=== PATIENT | male | born 1960 | race Caucasian/White ===

== ENCOUNTER 2018-09-19 14:24 | Inpatient (IN) ==
--- NOTE | 2018-09-19 15:06 | ED ---
HPI General Chief Complaint: Extremity Injury, Lower Stated Complaint: foot injury Time Seen by Provider: 09/19/18 14:43 Source: patient and RN notes reviewed Limitations: no limitations History of Present Illness HPI Narrative: 57 year old male presents to the emergency department for evaluation of left foot injury. Patient states that on Friday, 5 days ago, he was working in [place] on a roof and fell, landing on his right foot. He went to a local ER there and states he was diagnosed with "multiple foot fractures". Patient states they had no surgical capability and he was instructed to follow up. Patient states pain has been increasing and he is also concerned of increasing swelling. Patient denies any other injury. No head injury or LOC. No neck or back pain. Current pain is 8/10. Moderate severity. MD complaint: Reports foot injury Onset (ago): day(s) (5) Injury: Left: foot Type of Injury: Reports blunt Place: Reports work Severity: moderate Severity scale (1-10): 8 Relieving factors: nothing Exacerbating factors: nothing Context: Reports fall Associated symptoms: Reports unable to bear weight Other symptoms: Denies loss of consciousness, chest pain, diaphoresis, SOB, nausea/vomiting, seizure, syncope and confusion Treatments prior to arrival: Reports splint Related Data Home Medications Medication Instructions Recorded Confirmed No Known Home Medications 09/19/18 09/19/18 Allergies Allergy/AdvReac Type Severity Reaction Status Date / Time No Known Allergies Allergy Verified 09/19/18 14:28 Review of Systems ROS: all other systems reviewed are negative PMFSH Medical History Medical History Patient denies medical problems (Acute) Surgical History Surgical History H/O bone graft (Acute) History of arthroscopic knee surgery (Acute) Social History Social History Substance History: Active Abuse Smoking Status: Current every day smoker Tobacco Type: Cigarettes How Often Do You Have a Drink Containing Alcohol: Never Recent Travel in [place] within the Last 8 Weeks: No Recent Out of Country Travel within the Last 8 Weeks: No Exam Narrative Exam Narrative: GENERAL: Well-nourished, well-developed male patient, ambulatory. Afebrile. SKIN: Focused skin assessment warm/dry. Patient has ecchymosis to right medial ankle and calf with blister formation to the right medial ankle. Tissues are soft HEAD: Normocephalic. Atraumatic. EYES: No scleral icterus. No injection or drainage. NECK: Supple, trachea midline. No JVD or lymphadenopathy. CARDIOVASCULAR: Regular rate and rhythm without murmurs, gallops, or rubs. Right pedal pulse is 2+ RESPIRATORY: Breath sounds equal bilaterally. No accessory muscle use. Lung sounds are clear to auscultation. GASTROINTESTINAL: Abdomen soft, non-tender, nondistended. MUSCULOSKELETAL: No cyanosis, or edema. Patient has full sensation to the distal right lower extremity. He can wiggle toes without difficulty. BACK: Nontender without obvious deformity. No CVA tenderness. Course Initial Documented Vital Signs Temperature 97.8 F 09/19/18 14:25 Pulse Rate 94 H 09/19/18 14:25 Respiratory Rate 20 09/19/18 14:25 Blood Pressure 159/96 H 09/19/18 14:25 Pulse Oximetry 98 09/19/18 14:25 Last Documented Vital Signs Temperature 97.7 F 09/20/18 03:23 Pulse Rate 72 09/20/18 03:23 Respiratory Rate 18 09/20/18 03:23 Blood Pressure 139/89 09/20/18 03:23 Pulse Oximetry 98 09/20/18 03:23 Medical Decision Making KATIANA Attestation KATIANA supervised visit: Yes Attestation: I, Dr. Godinez, have reviewed the advance practice practitioner's documentation and am in agreement, met with the patient face to face, made the diagnosis, and the medical decision making was done by me. *My assessment and Findings: Patient seen and evaluated with PA, please see PA note for further details. He is here because he had fallen several days ago from a two-story level and is complaining of right heel pain. X-rays are showing fractures of the calcaneus. Case is discussed with podiatry for further treatment. MDM Narrative Medical decision making narrative: 57-year-old male presents to the emergency department evaluation of known right foot fractures, symptoms are worsening. X- ray of the right foot and right tibia/fibula as well as lumbar spine are ordered and pending. Patient is given Buchanan 5/325 mg p.o. for pain. X-ray of the right foot shows Crushing fracture of the calcaneus with avulsion adjacent to second PIP joint versus large osteophyte. X-ray of the right tibia/ fibula is unremarkable. X-ray of the lumbar spine shows Mild anterior wedging of L1 appears to be chronic. 1755 - I spoke with Dr. Mcgee who recommends CT of the foot. This is ordered. CT shows a crushing fracture of the calcaneus which extends intra- articularly into the talocalcaneal joint region of the sustentaculum talus. There is also a fracture of the medial cuneiform. [employer] is paged again. I spoke with Dr. Mcgee who reviewed CT scan. He would like the patient admitted to medicine, NPO after breakfast for surgery tomorrow afternoon/ evening. Medical Screen Exam Complete: Yes Emergency Medical Condition: Yes Differential Diagnosis Differential Diagnosis: Fracture versus contusion versus sprain versus dislocation Medical Records Medical records reviewed: Yes I reviewed the patient's medical records. Lab Data Result diagrams: 09/20/18 06:23 09/20/18 06:23 Lab Results 09/19/18 09/19/18 09/19/18 Range/Units 20:30 20:30 20:30 WBC 7.6 (4.0-11.0) th/mm3 RBC 4.77 (4.50-5.90) mil/mm3 Hgb 14.1 (13.0-17.0) gm/dL Hct 41.7 (39.0-51.0) % MCV 87.3 (80.0-100.0) fL MCH 29.6 (27.0-34.0) pg MCHC 33.9 (32.0-36.0) % RDW 14.7 (11.6-17.2) % Plt Count 250 (150-450) th/mm3 MPV 7.7 (7.0-11.0) fL Neut % (Auto) 53.3 (16.0-70.0) % Lymph % (Auto) 33.8 (9.0-44.0) % [place] % (Auto) 9.8 H (0.0-8.0) % Eos % (Auto) 2.5 (0.0-4.0) % Baso % (Auto) 0.6 (0.0-2.0) % Neut # (Auto) 4.1 (1.8-7.7) th/mm3 Lymph # (Auto) 2.6 (1.0-4.8) th/mm3 [place] # (Auto) 0.7 (0.0-0.9) th/mm3 Eos # (Auto) 0.2 (0.0-0.4) th/mm3 Baso # (Auto) 0.0 (0.0-0.2) th/mm3 WBC Differential . Differential Comment Auto diff final PT 11.2 (9.8-11.6) sec INR 1.1 Ratio APTT 30.6 (23.4-31.7) sec Sodium 140 (136-145) meq/L Potassium 3.9 (3.5-5.1) meq/L Chloride 105 (98-107) meq/L Carbon Dioxide 29.3 (21.0-32.0) meq/L Anion Gap 6 (5-15) meq/L BUN 18 (7-18) mg/dL Creatinine 0.72 (0.60-1.30) mg/dL Estimated GFR Greater than 89 (>89) mL/min Random Glucose 94 (74-106) mg/dL Calcium 8.5 (8.5-10.1) mg/dL Total Bilirubin 0.4 (0.2-1.0) mg/dL AST 18 (15-37) U/L ALT 24 (12-78) U/L Alkaline Phosphatase 83 (45-117) U/L Total Protein 7.2 (6.4-8.2) g/dL Albumin 3.0 L (3.4-5.0) g/dL 09/20/18 09/20/18 Range/Units 06:23 06:23 WBC 5.7 (4.0-11.0) th/mm3 RBC 4.64 (4.50-5.90) mil/mm3 Hgb 13.8 (13.0-17.0) gm/dL Hct 41.1 (39.0-51.0) % MCV 88.5 (80.0-100.0) fL MCH 29.8 (27.0-34.0) pg MCHC 33.6 (32.0-36.0) % RDW 14.7 (11.6-17.2) % Plt Count 251 (150-450) th/mm3 MPV 7.5 (7.0-11.0) fL Neut % (Auto) 46.5 (16.0-70.0) % Lymph % (Auto) 38.6 (9.0-44.0) % [place] % (Auto) 9.6 H (0.0-8.0) % Eos % (Auto) 4.7 H (0.0-4.0) % Baso % (Auto) 0.6 (0.0-2.0) % Neut # (Auto) 2.6 (1.8-7.7) th/mm3 Lymph # (Auto) 2.2 (1.0-4.8) th/mm3 [place] # (Auto) 0.5 (0.0-0.9) th/mm3 Eos # (Auto) 0.3 (0.0-0.4) th/mm3 Baso # (Auto) 0.0 (0.0-0.2) th/mm3 WBC Differential . Differential Comment Auto diff final PT (9.8-11.6) sec INR Ratio APTT (23.4-31.7) sec Sodium 140 (136-145) meq/L Potassium 4.1 (3.5-5.1) meq/L Chloride 107 (98-107) meq/L Carbon Dioxide 27.9 (21.0-32.0) meq/L Anion Gap 5 (5-15) meq/L BUN 16 (7-18) mg/dL Creatinine 0.80 (0.60-1.30) mg/dL Estimated GFR Greater than 89 (>89) mL/min Random Glucose 114 H (74-106) mg/dL Calcium 8.0 L (8.5-10.1) mg/dL Total Bilirubin 0.5 (0.2-1.0) mg/dL AST 17 (15-37) U/L ALT 22 (12-78) U/L Alkaline Phosphatase 80 (45-117) U/L Total Protein 6.9 (6.4-8.2) g/dL Albumin 2.9 L (3.4-5.0) g/dL Imaging Data Radiologist's impression: Foot X-Ray 09/19/18 15:03 CONCLUSION: Crushing fracture of the calcaneus with avulsion adjacent to second PIP joint versus large osteophyte. Tibia/Fibula X-Ray 09/19/18 15:03 CONCLUSION: Unremarkable study. Lumbar Spine X-Ray 09/19/18 16:23 CONCLUSION: Mild anterior wedging of L1 appears to be chronic. Foot CT 09/19/18 17:59 CONCLUSION: 1. Chronic fracture of the calcaneus and fracture of the medial cuneiform. Chest X-Ray 09/19/18 19:37 CONCLUSION: No acute cardiopulmonary disease. Discharge Plan Discharge Disposition Patient Disposition: ED Admit(ED Internal Use Only) Discharge Order Discharge Orders: ED Use Only Admit Order (Routine); Ordered 09/19/18 Ordered By: Janae Giordano Discharge Details Diagnosis: Foot fracture, right Physicians Team ED Provider: Giulia Godinez ED Midlevel Provider: Janae Giordano Primary Care Provider: Primary Care Janina Puentes Attending Provider: Meg Mason Other Providers: Monse Mcgee Status ED Status: Left Department Discharge Information Discharge Date/Time: 09/19/18 23:07
--- NOTE | 2018-09-19 15:49 | XR ---
EXAM DATE: 09/19/2018 3:43 PM EST AGE/SEX: 57 years / Male INDICATIONS: Right foot pain after falling off a roof 5 days ago. CLINICAL DATA: This is the patient's initial encounter. Patient reports that signs and symptoms have been present for 4 - 6 days and indicates a pain score of 7/10. MEDICAL/SURGICAL HISTORY: . Smoker. Previous fractures in his foot. None. COMPARISON: No prior exams available for comparison. FINDINGS: There is a compression fracture of the calcaneus which extends intra-articularly into the calcaneocub oid joint. There is a well-corticated bony density adjacent to the second PIP joint measures 5 mm may be due to old avulsed trauma, however chronicity is not certain, possibly a large osteophyte at the site. CONCLUSION: Crushing fracture of the calcaneus with avulsion adjacent to second PIP joint versus large osteophyte . Electronically signed by: David Montalvo MD Board Certified Radiologist 09/19/2018 3:47 PM EST
--- NOTE | 2018-09-19 15:50 | XR ---
EXAM DATE: 09/19/2018 3:45 PM EST AGE/SEX: 57 years / Male INDICATIONS: Lower leg bruising and swelling after falling off a roof five days ago. CLINICAL DATA: This is the patient's initial encounter. Patient reports that signs and symptoms have been present for 4 - 6 days and indicates a pain score of 0/10. MEDICAL/SURGICAL HISTORY: . Smoker. None. COMPARISON: No prior exams available for comparison. FINDINGS: No definite fractures, or dislocations are identified. No definite lytic or sclerotic les ion is seen. CONCLUSION: Unremarkable study. Electronically signed by: David Montalvo MD Board Certified Radiologist 09/19/2018 3:48 PM EST
--- NOTE | 2018-09-19 17:08 | XR ---
EXAM DATE: 09/19/2018 5:04 PM EST AGE/SEX: 57 years / Male INDICATIONS: Pain from fall. CLINICAL DATA: This is the patient's initial encounter. Patient reports that signs and symptoms have been present for 4 - 6 days and indicates a pain score of 7/10. MEDICAL/SURGICAL HISTORY: None. None. COMPARISON: No prior exams available for comparison. FINDINGS: There is mild scoliosis convexity towards the left. Slight anterior wedging of L1 on the or aniyah of 15%. Most likely chronic with superimposed degenerative change T12-L1 and L1-2 without any sig nificant spondylolisthesis. There is facet arthrosis L5-S1 bilaterally to a moderate degree and degen erative change within the disc space at this level to a moderate degree. CONCLUSION: Mild anterior wedging of L1 appears to be chronic. Electronically signed by: David Montalvo MD Board Certified Radiologist 09/19/2018 5:06 PM EST
--- NOTE | 2018-09-19 18:46 | CT ---
EXAM DATE: 09/19/2018 6:37 PM EST AGE/SEX: 57 years / Male INDICATIONS: Evaluate fracture. CLINICAL DATA: This is the patient's initial encounter. Patient reports that signs and symptoms have been present for 4 - 6 days and indicates a pain score of 10/10. MEDICAL/SURGICAL HISTORY: None. None. RADIATION DOSE: 7.29 CTDI (mGy) COMPARISON: No prior exams available for comparison. TECHNIQUE: Multiple contiguous axial images were acquired using a multirow detector CT scanner witho ut contrast. Multiplanar reconstruction was performed in the sagittal and coronal planes. Using auto mated exposure control and adjustment of the mA and/or kV according to patient size, radiation dose w as kept as low as reasonably achievable to obtain optimal diagnostic quality images. DICOM format im age data is available electronically for review and comparison. FINDINGS: There is a crushing fracture of the calcaneus which extends intra-articularly into the talocalcaneal joint region of the sustentaculum talus. There is also a fracture of the medial cuneiform. The area t hat was questioned as an avulsion fracture versus osteophyte involving the second PIP joint has the a ppearance of a large osteophyte without evidence for fracture at this site. CONCLUSION: 1. Chronic fracture of the calcaneus and fracture of the medial cuneiform. Electronically signed by: David Montalvo MD Board Certified Radiologist 09/19/2018 6:45 PM EST
[2018-09-19] MEDS ORDERED: Bisacodyl 10 MG Supp RECTAL PRN (19:59)
[2018-09-19] MEDS ORDERED: Acetaminophen 325 MG Tablet PO PRN (19:59)
--- NOTE | 2018-09-19 20:01 | P.HPIM ---
History of Present Illness Primary Care Physician: No Primary Care Physician History of Present Illness: This is a 57-year-old male with no reported PMH presented to the ER with complaints of right foot pain x5 days. States he was working in [place] and fell off a 2-story roof he was working on, was seen in the ER in [place] , told he had multiple foot fractures, was placed in splint and d/c'd home. Presents here w/ ongoing pain. Pain is severe, 9/10, non-radiating, worse w/ movement. Denies other injuries. On arrival, BP 159/96, HR 94, O2 sat 98% on RA, Afebrile. CXR with no acute findings. Foot X-ray question fracture of calcaneus with avulsion. Tib-fib X-ray negative. Foot CT chronic fracture of calcaneus and fracture of medial cuneiform. L-spine X-ray mild anterior wedging L1 appears chronic. Dr. Mcgee consulted, plan is for surgical intervention tomorrow. - Diagnosis (1) Foot fracture, right (2) HTN (hypertension) (3) Tobacco abuse Review of Systems PAST FAMILY HISTORY: Reviewed. No h/o DM or CAD All other systems reviewed negative except as stated in HPI PMFSH - History History Provided By: Patient - Medical History Medical History: Medical History (Last Updated 09/19/18 @ 15:37 by Mer Buenrostro RN) Patient denies medical problems - Surgical History Surgical History: Surgical History (Last Updated 09/19/18 @ 15:37 by Mer Buenrostro RN) H/O bone graft History of arthroscopic knee surgery - Tobacco History Tobacco Use In Past 30 Days: Yes Smoking Status: Current every day smoker Tobacco Type: Cigarettes - Alcohol History How Often Do You Have a Drink Containing Alcohol: Never - Substance Use History Substance History: Active Abuse - Substance Use Type Marijuana Status: Active Route Used: Inhalation - Travel History Recent Travel in the [facility] Within the Last 8 Weeks: No Recent Travel Out of the Country Within the Last 8 Weeks: No - Immunization History Tetanus Immunization: <5 Years Medications and Allergies Allergies Allergy/AdvReac Type Severity Reaction Status Date / Time No Known Allergies Allergy Verified 09/19/18 14:28 Home Medications Medication Instructions Recorded Confirmed Type No Known Home Medications 09/19/18 09/19/18 History Exam Vital signs: Vital Signs 09/19/18 14:25 09/19/18 14:27 Temperature 97.8 F Pulse Rate 94 H 79 Respiratory Rate 20 17 Blood Pressure 159/96 H Pulse Oximetry 98 95 Intake & Output 09/19/18 09/19/18 09/20/18 06:59 18:59 06:59 Weight 72.575 kg Narrative: PE: GENERAL: Pleasant middle-aged white male in no acute distress. SKIN: Focused skin assessment warm and dry. HEENT: PERRLA, EOMI. No scleral icterus or conjunctival pallor. No lid lag or facial droop. CARDIOVASCULAR: Regular rate and rhythm. No obvious murmurs to auscultation. No chest tenderness to palpation. RESPIRATORY: No obvious rhonchi or wheezing. Clear to auscultation. Breath sounds equal bilaterally. GASTROINTESTINAL: Abdomen soft, non-tender, nondistended. BS normal. MUSCULOSKELETAL: Extremities without clubbing, cyanosis, or edema. No obvious deformities. Decreased ROM of RLE due to injury NEUROLOGICAL: Awake, alert and oriented x4. No focal neurologic deficits. Moving both upper and lower extremities spontaneously. PSYCHIATRIC: Appropriate mood and affect. Insight and judgment normal. Results - Labs CBC & Chem 7: 09/19/18 20:30 09/19/18 20:30 - Imaging Impressions Foot X-Ray 09/19/18 15:03 CONCLUSION: Crushing fracture of the calcaneus with avulsion adjacent to second PIP joint versus large osteophyte. Tibia/Fibula X-Ray 09/19/18 15:03 CONCLUSION: Unremarkable study. Lumbar Spine X-Ray 09/19/18 16:23 CONCLUSION: Mild anterior wedging of L1 appears to be chronic. Foot CT 09/19/18 17:59 CONCLUSION: 1. Chronic fracture of the calcaneus and fracture of the medial cuneiform. Caprini VTE Risk Assessment Caprini VTE Risk Assessment: No/Low Risk (score <= 1) VTE Mechanical Exception: LE injury/wound Caprini Risk Assessment Model: Point Value = 1 Point Value = 2 Point Value = 3 Point Value = 5 Age 41-60 Minor surgery BMI > 25 kg/m2 Swollen legs Varicose veins or History of unexplained or recurrent spontaneous Oral contraceptives or hormone replacement Sepsis (< 1 month) Serious lung disease, including pneumonia (< 1 month) Abnormal pulmonary function Acute myocardial infarction Congestive heart failure (< 1 month) History of inflammatory bowel disease Medical patient at bed rest Age 61-74 Arthroscopic surgery Major open surgery (> 45 min) Laparoscopic surgery (> 45 min) Malignancy Confined to bed (> 72 hours) Immobilizing plaster cast Central venous access Age >= 75 History of VTE Family history of VTE Factor V Leiden Prothrombin [id number] Lupus anticoagulant Anticardiolipin antibodies Elevated serum homocysteine Heparin-induced thrombocytopenia Other congenital or acquired thrombophilia Stroke (< 1 month) Elective arthroplasty Hip, pelvis, or leg fracture Acute spinal cord injury (< 1 month) Prophylaxis Regimen: Total Risk Factor Score Risk Level Prophylaxis Regimen 0-1 Low Early ambulation 2 Moderate Order ONE of the following: *Sequential Compression Device (SCD) *Heparin 5000 units SQ BID 3-4 Higher Order ONE of the following medications: *Heparin 5000 units SQ TID *Enoxaparin/Lovenox 40 mg SQ daily (WT < 150 kg, CrCl > 30 mL/min) *Enoxaparin/Lovenox 30 mg SQ daily (WT < 150 kg, CrCl > 10-29 mL/min) *Enoxaparin/Lovenox 30 mg SQ BID (WT < 150 kg, CrCl > 30 mL/min) AND/OR *Sequential Compression Device (SCD) 5 or more Highest Order ONE of the following medications: *Heparin 5000 units SQ TID (Preferred with Epidurals) *Enoxaparin/Lovenox 40 mg SQ daily (WT < 150 kg, CrCl > 30 mL/min) *Enoxaparin/Lovenox 30 mg SQ daily (WT < 150 kg, CrCl > 10-29 mL/min) *Enoxaparin/Lovenox 30 mg SQ BID (WT < 150 kg, CrCl > 30 mL/min) AND *Sequential Compression Device (SCD) Assessment and Plan - Assessment (1) Foot fracture, right Code(s): S92.901A - Unspecified fracture of right foot, initial encounter for closed fracture Status: Acute (2) HTN (hypertension) Code(s): I10 - Essential (primary) hypertension Status: Acute (3) Tobacco abuse Code(s): Z72.0 - Tobacco use Status: Acute - Plan A/P: 1. Right Foot Fx: s/p fall from roof 5 days ago in [place], presents w/ ongoing pain complaints, X-ray/CT Foot w/ fracture of calcaneus and fracture of medial cuneiform. Dr. Mcgee consulted, plan is for surgical intervention tomorrow afternoon, NPO after breakfast, follow up pre-op labs. CXR w/ no acute findings. Analgesics/antiemetics as needed. 2. HTN: Uncontrolled, likely secondary to pain complaints, optimize pain control, monitor BP, antihypertensives as needed for BP >180 3. Tobacco Abuse: Pt counselled. NicoDerm prn if needed. 4. DVT Prophylaxis: Anticoagulation post op 5. Social work for d/c planning as needed. 6. Case discussed w/ ER physician at length, labs/records/imaging reviewed by me. (1) Foot fracture, right Qualifiers: Encounter type: initial encounter Fracture type: closed Qualified Code(s): S92.901A - Unspecified fracture of right foot, initial encounter for closed fracture
--- NOTE | 2018-09-19 20:21 | XR ---
EXAM DATE: 09/19/2018 8:14 PM EST AGE/SEX: 57 years / Male INDICATIONS: Evaluate for any pulmonary disease as patient is being prepared for foot surgery. CLINICAL DATA: This is the patient's subsequent encounter. Patient reports that signs and symptoms h ave been present for 1 day and indicates a pain score of 0/10. MEDICAL/SURGICAL HISTORY: None. None. COMPARISON: No prior exams available for comparison. FINDINGS: The lungs are clear without infiltrate, nodule, or mass. There is no appreciable pleural effusion fo r technique. Heart and mediastinum are unremarkable. CONCLUSION: No acute cardiopulmonary disease. Electronically signed by: David Montalvo MD Board Certified Radiologist 09/19/2018 8:20 PM EST
[2018-09-19] MEDS: Morphine Sulfate Inj 2 MG/ML Vial IV.PUSH PRN (20:35)
[2018-09-19 20:48] LABS: Baso % (Auto) 0.6 % (0.0-2.0); Eos # (Auto) 0.2 th/mm3 (0.0-0.4); Eos % (Auto) 2.5 % (0.0-4.0); Hematocrit 41.7 % (39.0-51.0); Hemoglobin 14.1 gm/dL (13.0-17.0); Lymph # (Auto) 2.6 th/mm3 (1.0-4.8); Lymph % (Auto) 33.8 % (9.0-44.0); Mean Corpuscular HGB Conc 33.9 % (32.0-36.0); Mean Corpuscular Hemoglobin 29.6 pg (27.0-34.0); Mean Corpuscular Volume 87.3 fL (80.0-100.0); Mean Platelet Volume 7.7 fL (7.0-11.0); Mono # (Auto) 0.7 th/mm3 (0.0-0.9); Mono % (Auto) 9.8 % (0.0-8.0); Neut # (Auto) 4.1 th/mm3 (1.8-7.7); Neut % (Auto) 53.3 % (16.0-70.0); Platelet Count 250 th/mm3 (150-450); Red Blood Count 4.77 mil/mm3 (4.50-5.90); Red Cell Distribution Width 14.7 % (11.6-17.2); White Blood Count 7.6 th/mm3 (4.0-11.0)
[2018-09-19 20:57] LABS: Activated Partial Thrombo Time 30.6 sec (23.4-31.7); INR 1.1 Ratio; Prothrombin Time 11.2 sec (9.8-11.6)
[2018-09-19] MEDS: Sod Chloride 0.9% Inj 1,000 ML IV.CONT SCH (21:00)
[2018-09-19 21:16] LABS: Alanine Aminotransferase 24 U/L (12-78); Anion Gap 6 meq/L (5-15); Aspartate Aminotransferase 18 U/L (15-37); Blood Urea Nitrogen 18 mg/dL (7-18); Calcium 8.5 mg/dL (8.5-10.1); Carbon Dioxide 29.3 meq/L (21.0-32.0); Chloride 105 meq/L (98-107); Glomerular Filtration Rate Greater Than 89 mL/min (>89); Glucose,Random 94 mg/dL (74-106); Potassium 3.9 meq/L (3.5-5.1); Sodium 140 meq/L (136-145)
[2018-09-19 21:18] LABS: Alkaline Phosphatase 83 U/L (45-117); Total Protein 7.2 g/dL (6.4-8.2)
[2018-09-19] MEDS: Senna/Docusate Sodium 8.6/50 MG Tablet PO SCH (22:15)
[2018-09-20] MEDS: Morphine Sulfate Inj 2 MG/ML Vial IV.PUSH PRN ×3 (00:28→14:56)
[2018-09-20] MEDS ORDERED: Chlorhexidine Gluconate 2% 1 Pack (2 Cloths) TOPICAL ONE (03:20)
[2018-09-20] MEDS ORDERED: Sodium Chlor 0.9% Inj 500 ML IV.SIG SCH (04:00)
[2018-09-20 06:39] LABS: Baso % (Auto) 0.6 % (0.0-2.0); Eos # (Auto) 0.3 th/mm3 (0.0-0.4); Eos % (Auto) 4.7 % (0.0-4.0); Hematocrit 41.1 % (39.0-51.0); Hemoglobin 13.8 gm/dL (13.0-17.0); Lymph # (Auto) 2.2 th/mm3 (1.0-4.8); Lymph % (Auto) 38.6 % (9.0-44.0); Mean Corpuscular HGB Conc 33.6 % (32.0-36.0); Mean Corpuscular Hemoglobin 29.8 pg (27.0-34.0); Mean Corpuscular Volume 88.5 fL (80.0-100.0); Mean Platelet Volume 7.5 fL (7.0-11.0); Mono # (Auto) 0.5 th/mm3 (0.0-0.9); Mono % (Auto) 9.6 % (0.0-8.0); Neut # (Auto) 2.6 th/mm3 (1.8-7.7); Neut % (Auto) 46.5 % (16.0-70.0); Platelet Count 251 th/mm3 (150-450); Red Blood Count 4.64 mil/mm3 (4.50-5.90); Red Cell Distribution Width 14.7 % (11.6-17.2); White Blood Count 5.7 th/mm3 (4.0-11.0)
[2018-09-20 07:03] LABS: Alanine Aminotransferase 22 U/L (12-78); Albumin 2.9 g/dL (3.4-5.0); Anion Gap 5 meq/L (5-15); Aspartate Aminotransferase 17 U/L (15-37); Blood Urea Nitrogen 16 mg/dL (7-18); Carbon Dioxide 27.9 meq/L (21.0-32.0); Chloride 107 meq/L (98-107); Glomerular Filtration Rate Greater Than 89 mL/min (>89); Glucose,Random 114 mg/dL (74-106); Potassium 4.1 meq/L (3.5-5.1); Sodium 140 meq/L (136-145)
[2018-09-20 07:05] LABS: Alkaline Phosphatase 80 U/L (45-117); Total Protein 6.9 g/dL (6.4-8.2)
[2018-09-20] MEDS: Sod Chloride 0.9% Inj 1,000 ML IV.CONT SCH (08:31)
[2018-09-20] MEDS: Senna/Docusate Sodium 8.6/50 MG Tablet PO SCH ×2 (09:21→21:00)
--- NOTE | 2018-09-20 17:23 | P.PNIM ---
Subjective Interval history: Patient is seen lying quietly in bed with right foot elevated. He tells me pain is controlled and is generally just a throbbing. He has no other complaints-no shortness of breath or chest pain. No fever or chills. No nausea vomiting or diarrhea. He is looking forward to getting surgery so he can go back to work. Physical Exam Vital signs: Last Vital Signs Temp 97.8 F 09/20/18 16:00 Pulse 68 09/20/18 16:00 Resp 20 09/20/18 16:00 BP 141/80 H 09/20/18 16:00 Pulse Ox 97 09/20/18 16:00 Intake & Output 09/18/18 09/19/18 09/20/18 09/21/18 06:59 06:59 06:59 06:59 Intake Total 360 / 360 Output Total 750 / 750 800 / 800 Balance -390 / -390 -800 / -800 Weight 72 kg Narrative: GENERAL: Well-nourished, well-developed adult male in no obvious distress. SKIN: Warm and dry. HEAD: Atraumatic. Normocephalic. CARDIOVASCULAR: Regular rate and rhythm. RESPIRATORY: No accessory muscle use. Clear to auscultation. Breath sounds equal bilaterally. GASTROINTESTINAL: Abdomen soft, non-tender, non-distended. Positive bowel sounds. MUSCULOSKELETAL: Extremities without clubbing, cyanosis, or edema. Right foot in Fercho wrap; toes warm and well perfused. NEUROLOGICAL: Awake and alert. No obvious cranial nerve deficits. Motor grossly within normal limits. Normal speech. PSYCHIATRIC: Appropriate mood and affect; insight and judgment good. Results Labs CBC & Chem 7: 09/20/18 06:23 09/20/18 06:23 Imaging Imaging: Impressions Foot CT 09/19/18 17:59 CONCLUSION: 1. Chronic fracture of the calcaneus and fracture of the medial cuneiform. Chest X-Ray 09/19/18 19:37 CONCLUSION: No acute cardiopulmonary disease. Assessment and Plan (1) Foot fracture, right: Code(s): S92.901A - Unspecified fracture of right foot, initial encounter for closed fracture Status: Acute (2) HTN (hypertension): Code(s): I10 - Essential (primary) hypertension Status: Acute (3) Tobacco abuse: Code(s): Z72.0 - Tobacco use Status: Acute Plan Patient is a 57-year-old male who presented to the emergency room with a complaint of right foot pain times 5 days. He injured it after falling off of a two-story roof. He denies any other significant history however he is noted to have high blood pressure at admit Right foot fracture -Planned surgical repair today Hypertension -Likely exacerbated by pain; consider adding lisinopril or Norvasc if indicated once pain is controlled Tobacco abuse -Cessation counseled DVT prophylaxis: Anticoagulation postop per surgery Discharge planning: To be determined _ (1) Foot fracture, right Qualifiers: Encounter type: initial encounter Fracture healing: Fracture type: closed Qualified Code(s): S92.901A - Unspecified fracture of right foot, initial encounter for closed fracture (2) HTN (hypertension) Qualifiers: Hypertension type:
--- NOTE | 2018-09-20 17:45 | MB ---
cc: Monse Mcgee DPM DATE: 09/20/2018 TIME SEEN: 10:00 HISTORY OF PRESENT ILLNESS: The patient is a 57-year-old male who presented to the ER with complaints of right foot pain. Five days ago, the patient states he fell off a roof in [place] while he was working. He was seen in the ER there and told he had fractures, placed in a splint and discharged home. The patient was informed that they did not have the services to accommodate his injury. The patient presented to the ED with severe pain. The patient was seen at bedside. No nausea, vomiting, fever, diarrhea or chills. PAST MEDICAL HISTORY: Hypertension. PAST SURGICAL HISTORY: Knee arthroscopy, bone grafting. SOCIAL HISTORY: The patient admits to smoking daily cigarettes. Denies alcohol. Positive for marijuana daily. MEDICATIONS: Per chart. PHYSICAL EXAMINATION: Right lower extremity, there is ecchymosis and fracture bullae in the medial aspect of the ankle and the foot as well as ecchymosis extending up the leg. Lateral aspect of the foot has positive swelling. There is no tenting of the skin. Muscle strength is +5/5 in all quadrants. Protective sensation is intact to light touch. LABORATORY DATA: WBC on 09/20/2018 is 5.7, RBC 4.64, H and H 13.[address] of right foot with a comminuted calcaneal fracture. There is subsidence of the middle facet into the body of the calcaneus. There is no noted lateral displacement. ASSESSMENT: 1. Right calcaneal fracture. 2. Right nondisplaced medial cuneiform fracture. PLAN: Take the patient to the OR for open reduction and internal fixation. Discussed at length that smoking can delay his healing. He will have arthritis longstanding thereafter due to his injuries and fracture. All questions were answered. Risks, benefits, pros and cons were discussed with the patient and he fully consented to surgical intervention. No guarantees were given or implied. Monse Mcgee DPM SR/harrison , 04:09 PM , 04:19 PM
[2018-09-20] MEDS ORDERED: Bupivacaine 0.25% Inj 50 ML MDV Vial ONE (18:07)
[2018-09-20] MEDS ORDERED: ceFAZolin 2 GM Premix Inj 2 GM/50 ML PIGGYBACK IV.SIG ONE (19:05)
--- NOTE | 2018-09-20 19:23 | P.BOP ---
- Preoperative Diagnosis (1) Closed fracture of right calcaneus with routine healing - Postoperative Diagnosis (1) Closed fracture of right calcaneus with routine healing Date of procedure: 09/20/18 Procedure: 1. Open reduction with internal fixation right calcaneus Sinus tarsi approach. Access to lateral aspect of subtalar joint, examined peroneals and found to be without apparent damage/rupture at this time. Restored subtalar joint and fixation x 2 6.5mm cannulated screws placed, followed by norian bone void filler (synthes) in bone void. Reduction and stable fixation confirmed with c-arm. Closure with 3-0 vicryl and 3-0 nylon, followed by application of well-padded posterior splint right lower extremity. 2g ancef IV preop Right calf tourniquet x 75 min @250mmHg 20mL 0.25% marcaine plain and GETA DISPOSITION: Nonweightbearing right lower extremity May need inpatient rehab due to social situation Keep dressing clean, dry, intact and follow up in clinic in 1 week for dressing change. Ice/elevate as needed for pain control Implants: Synthes 6.5mm Cannulated screws x 2, Norian bone void filler Anesthesia: GETA, local (20mL 0.25% marcaine plain) Surgeon: Monse Mcgee DPM Rn Case Manager Hospice: Sam Duong DPM Estimated blood loss (mL): 20 Tourniquet time (min): 75 (250mmHg) Pathology: none sent Condition: stable Disposition: PACU
[2018-09-20] MEDS ORDERED: Dexmedetomidine Inj 200 MCG/2 ML Vial ONE (19:30)
[2018-09-20] MEDS ORDERED: HYDROmorphone PF Inj 1 MG/ML Ampul ONE (19:30)
--- NOTE | 2018-09-20 19:47 | XR ---
EXAM DATE: 09/20/2018 7:45 PM EST AGE/SEX: 57 years / Male INDICATIONS: ORIF right heel. CLINICAL DATA: This is the patient's initial encounter. Patient reports that signs and symptoms have been present for 1 day and indicates a pain score of Nonresponsive. MEDICAL/SURGICAL HISTORY: Non-responsive. Non-responsive. COMPARISON: No prior exams available for comparison. FINDINGS: Surgical screw traverses the calcaneus with probable cement filled anterior portion. CONCLUSION: Intact postsurgical changes. Electronically signed by: David Montalvo MD Board Certified Radiologist 09/20/2018 7:46 PM EST
[2018-09-20] MEDS ORDERED: fentaNYL Citrate Inj 100 MCG/2 ML Ampul ONE (19:51)
[2018-09-20] MEDS ORDERED: *morphine SULFATE 4 MG/ML PERIprocedure ONLY ONE (19:51)
[2018-09-20] MEDS ORDERED: *Meperidine Inj 25 MG/ML Vial PERIprocedural Use ONLY ONE (19:51)
[2018-09-20] MEDS ORDERED: *morphine SULFATE 10 MG/ML PERIprocedure ONLY ONE (20:21)
--- NOTE | 2018-09-20 22:10 | XR ---
EXAM DATE: 09/20/2018 10:06 PM EST AGE/SEX: 57 years / Male INDICATIONS: Post op ORIF right calcaneous. CLINICAL DATA: This is the patient's initial encounter. Patient reports that signs and symptoms have been present for 1 day and indicates a pain score of Nonresponsive. MEDICAL/SURGICAL HISTORY: Non-responsive. Non-responsive. COMPAR[place]: [facility] [place] HE[place] CALC MIN 2V, 09/20/2018. [facility] [place] W/O CONTRAST, 1 11/20/2017. . FINDINGS: There are 2 screws traversing the calcaneus with cemented anterior portion with gross anato mical alignment of the fracture fragments. CONCLUSION: Gross anatomical alignment. Electronically signed by: David Montalvo MD Board Certified Radiologist 09/20/2018 10:08 PM EST
--- NOTE | 2018-09-21 00:12 | MP ---
cc: Monse Mcgee [facility] DATE OF OPERATION: 09/20/2018 PREOPERATIVE DIAGNOSIS: Right calcaneal fracture. POSTOPERATIVE DIAGNOSIS: Right calcaneal fracture. PROCEDURE PERFORMED: Right calcaneal ORIF. SURGEON: Monse Mcgee MD MOLDER APPRENTICE: Dr. Duong. ANESTHESIOLOGIST: Dr. Deluca. ANESTHESIA: General. HEMOSTASIS: Right calf tourniquet at 250 mmHg for 70 minutes. ESTIMATED BLOOD LOSS: Less than 3 mL. MATERIALS: 2-0 Vicryl and 3-0 nylon, 55 mm x 2 x 6.5 cannulated Synthes long thread cortical screws, 5 mL implant by Synthes. INJECTABLES: Postoperatively, 20 mL of 0.25% Marcaine plain about the right ankle. BRIEF HISTORY: The patient is a 57-year-old male who sustained a right calcaneal fracture from a 2-story fall approximately 5 days ago. He was seen at a facility in [place], discharged and told to followup with surgery. The patient was admitted and discussed surgical intervention. Risks, benefits, pros and cons discussed. No guarantees were given or implied. DESCRIPTION OF PROCEDURE: The patient was brought to the operating room and placed on the operating table in the supine position. After anesthesia was administered, timeout was called. Correct consent and providers as well as site identification carried out. Attention was then directed to the right foot where the foot was exsanguinated and tourniquet inflated to 250 mmHg. on the right leg. Subtalar lateral incision was carried out through skin and soft tissue down to the level of the calcaneal fracture. The peroneals were retracted plantarly. The middle facet fracture, evaluated and incision copiously irrigated with normal sterile saline. The middle facet fracture, elevated with a [place], rotated into appropriate position, temporarily fixating with wire from lateral to medial. The pin was translocated across the posterior heel from lateral to medial to use as a joystick. The facet was temporarily fixated, Steinmann pin was removed from the posterior heel. A 6.5 x 55 mm cannulated Synthes screws were applied as a kickstand fixation. Good intraoperative fluoroscopy was noted. Good alignment was noted and then 5 mL of bone graft was injected into the bone void. This was all done under intraoperative fluoroscopy. K-wires were removed. Final pictures taken intraoperatively. Good alignment was noted. Incision was then closed in layers using 2-0 Vicryl, 3-0 nylon. Dry sterile dressings were applied to the lateral incisions as well as the plantar heel and the medial ecchymotic lesions was dressed with Betadine and Adaptic. A well-padded posterior splint was applied. Tourniquet deflated after 70 minutes. The patient tolerated the procedure completion. He was given 2 grams of Ancef preoperatively and wrapped in a posterior ankle block postoperatively using 20 mL of 0.25% Marcaine. The patient will be followed up . He was transferred back for postop monitoring, after which he will be discharged to the floor. Monse Mcgee DPM SR/sj/do , 10:00 PM , 10:12 PM
--- NOTE | 2018-09-21 07:42 | P.PNPOD ---
Subjective Interval history: Mild pain over night, otherwise doing well, homeless- however possibly weds he has a place to go with a friend. Physical Exam Vital signs: Vital Signs 09/20/18 08:00 09/20/18 10:47 09/20/18 12:00 Temperature 98 F 98.4 F Pulse Rate 77 79 Respiratory Rate 20 20 20 Blood Pressure 141/76 H 139/85 Pulse Oximetry 93 L 94 L 09/20/18 16:00 09/20/18 19:41 09/20/18 19:45 Temperature 97.8 F 98.0 F Pulse Rate 68 83 81 Respiratory Rate 20 14 16 Blood Pressure 141/80 H 166/91 H 160/96 H Pulse Oximetry 97 100 97 09/20/18 20:00 09/20/18 20:15 09/20/18 20:23 Temperature Pulse Rate 71 88 Respiratory Rate 11 L 13 18 Blood Pressure 134/82 143/84 H Pulse Oximetry 95 96 09/20/18 20:30 09/20/18 20:53 09/20/18 23:09 Temperature 98.1 F 97.4 F L 98.1 F Pulse Rate 85 76 89 Respiratory Rate 12 18 18 Blood Pressure 131/85 118/71 121/73 Pulse Oximetry 93 L 95 94 L 09/21/18 03:40 Temperature 97.6 F Pulse Rate 68 Respiratory Rate 18 Blood Pressure 112/67 Pulse Oximetry 97 Intake & Output 09/20/18 09/21/18 09/21/18 18:59 06:59 18:59 Intake Total 50 / 50 1310 / 1310 Output Total 800 / 800 100 / 100 Balance -750 / -750 1210 / 1210 Weight 72 kg Intake: IV 50 / 50 Ancef 2 GM Premix Inj 2 gm In 50 / 50 50 ml @ 100 mls/hr IV.SIG ONCE ONE Rx#:[id number] Oral 510 / 510 Anesthesia Amount 800 / 800 Output: Urine 800 / 800 0 / 0 Estimated Blood Loss 100 / 100 Other: # Voids 425 # Bowel Movements 0 - Constitutional no acute distress - Neurological Alert and oriented x3 - Routine Extremities Exam Comments: RT LE- good ROM of digits good CFT to digits sensation intact splint intact clean and dry Medications and Allergies Active Medications: Active Medications Acetaminophen (Tylenol) 650 mg PO Q4H PRN PRN Reason: Temp > 100.4 Hydrocodone Bitart/Acetaminophen ([place] 5/325) 1 tab PO Q4H PRN PRN Reason: PAIN 3-5 Last Admin: 09/21/18 06:15 Dose: 1 tab Al Hydroxide/Mg Hydroxide (Milk Of Magnesia Liq) 30 ml PO Q12H PRN PRN Reason: Mild Constipation Bisacodyl (Dulcolax Supp) 10 mg RECTAL DAILY PRN PRN Reason: SEVERE CONSITIPATION Sodium Chloride (Ns Inj) 1,000 mls @ 100 mls/hr IV.CONT .Q10H [facility] Last Admin: 09/20/18 08:31 Dose: Not Given Sodium Chloride (Ns Inj) 500 mls @ 30 mls/hr IV.SIG .Q10H [facility] Lactulose (Lactulose Liq) 30 ml PO DAILY PRN PRN Reason: SEVERE CONSITIPATION Miscellaneous Information (Misc Nursing Information) 0 each OTHER UNSCH PRN PRN Reason: SEE LABEL COMMENTS Stop: 09/21/18 20:21 Morphine Sulfate (Morphine Inj) 2 mg IV.PUSH Q4H PRN PRN Reason: PAIN 6-10 Last Admin: 09/20/18 14:56 Dose: 2 mg Ondansetron HCl (Zofran Inj) 4 mg IV.PUSH Q6H PRN PRN Reason: NAUSEA OR VOMITING Senna/Docusate Sodium (Maria De Jesus-Colace) 1 tab PO BID [facility] Last Admin: 09/20/18 21:00 Dose: Not Given Sennosides (Senokot) 17.2 mg PO Q12H PRN PRN Reason: Moderate Constipation Sodium Chloride (Ns Flush) 2 ml IV.FLUSH BID [facility] Last Admin: 09/20/18 21:00 Dose: Not Given Sodium Chloride (Ns Flush) 2 ml IV.FLUSH PRN PRN PRN Reason: FLUSH AFTER USING IV ACCESS Allergies Allergy/AdvReac Type Severity Reaction Status Date / Time No Known Allergies Allergy Verified 09/19/18 14:28 Home Medications Medication Instructions Recorded Confirmed Type No Known Home Medications 09/19/18 09/19/18 History Results - Labs CBC & Chem 7: 09/20/18 06:23 09/20/18 06:23 - Imaging Impressions Foot CT 09/19/18 17:59 CONCLUSION: 1. Chronic fracture of the calcaneus and fracture of the medial cuneiform. Foot X-Ray 09/20/18 00:00 CONCLUSION: Gross anatomical alignment. Foot X-Ray 09/20/18 00:00 CONCLUSION: Intact postsurgical changes. Assessment and Plan - Assessment (1) Closed fracture of right calcaneus with routine healing Code(s): S92.001D - Unspecified fracture of right calcaneus, subsequent encounter for fracture with routine healing Status: Acute - Plan Pain control today, encourage PO Meds only with anticipation of DC tomorrow. DVT prophylaxis to begin, may need Case management to help arrange. Non WB right LE, ok to crutch WB PT ordered. Reviewed smoking cessation need for healing.
[2018-09-21] MEDS: Senna/Docusate Sodium 8.6/50 MG Tablet PO SCH ×2 (09:41→22:00)
--- NOTE | 2018-09-21 12:19 | ECG ---
Date Performed: 09/20/2018 Time Performed: 13:18:06 PTAGE: 57 years EKG: Sinus rhythm NORMAL ECG NO PREVIOUS TRACING DOCTOR: [place] Interpretating Date/Time 09/21/2018 12:17:41
[2018-09-21] MEDS ORDERED: Naloxone Inj 0.4 MG/ML Vial IV.PUSH PRN (17:13)
[2018-09-21] MEDS ORDERED: Melatonin 5 MG Tablet PO PRN (17:16)
--- NOTE | 2018-09-21 17:20 | P.PNIM ---
Subjective Interval history: Patient seen lying in bed. Sister is at bedside. Patient tells me that he feels fine except for his foot which remains very painful. It is a deep throbbing pain that has not improved with current pain medication. Denies fever or chills. Denies shortness of breath or chest pain. No nausea vomiting or diarrhea. Physical Exam Vital signs: Last Vital Signs Temp 97.9 F 09/21/18 16:55 Pulse 74 09/21/18 16:55 Resp 18 09/21/18 16:55 BP 148/79 H 09/21/18 16:55 Pulse Ox 95 09/21/18 16:55 Intake & Output 09/19/18 09/20/18 09/21/18 09/22/18 06:59 06:59 06:59 06:59 Intake Total 360 / 360 1360 / 1360 720 / 720 Output Total 750 / 750 900 / 900 1075 / 1075 Balance -390 / -390 460 / 460 -355 / -355 Weight 72 kg 72 kg Narrative: GENERAL: Well-nourished, well-developed adult male in no obvious distress. SKIN: Warm and dry. HEAD: Atraumatic. Normocephalic. CARDIOVASCULAR: Regular rate and rhythm. RESPIRATORY: No accessory muscle use. Clear to auscultation. Breath sounds equal bilaterally. GASTROINTESTINAL: Abdomen soft, non-tender, non-distended. Positive bowel sounds. MUSCULOSKELETAL: Extremities without clubbing, cyanosis, or edema. Right foot in Fercho wrap; toes warm and well perfused. NEUROLOGICAL: Awake and alert. No obvious cranial nerve deficits. Motor grossly within normal limits. Normal speech. PSYCHIATRIC: Appropriate mood and affect; insight and judgment good. Results Labs CBC & Chem 7: 09/20/18 06:23 09/20/18 06:23 Imaging Imaging: Impressions Foot CT 09/19/18 17:59 CONCLUSION: 1. Chronic fracture of the calcaneus and fracture of the medial cuneiform. Foot X-Ray 09/20/18 00:00 CONCLUSION: Gross anatomical alignment. Foot X-Ray 09/20/18 00:00 CONCLUSION: Intact postsurgical changes. Assessment and Plan (1) Closed fracture of right calcaneus with routine healing: Code(s): S92.001D - Unspecified fracture of right calcaneus, subsequent encounter for fracture with routine healing Status: Acute Plan Patient is a 57-year-old male who presented to the emergency room with a complaint of right foot pain times 5 days. He injured it after falling off of a two-story roof. He denies any other significant history however he is noted to have high blood pressure at admit Right foot fracture -s/p right calcaneal ORIF -Management per podiatry -PT ordered -Pain poorly controlled-will increase orals. Avoid IV if possible due to pending discharge Hypertension -Likely exacerbated by pain; consider adding lisinopril or Norvasc if indicated once pain is controlled Tobacco abuse -Cessation counseled DVT prophylaxis: Anticoagulation postop per surgery Discharge planning: To be determined [facility] Post Prescription Drug Monitoring Database has been queried and verified prior to prescribing the controlled substance. Acute pain exception. This patient has normal, predicted, physiological, and time limited response to an adverse mechanical stimulus associated with surgery, trauma, or acute illness as described in my notes. There is a lack of alternative treatment options other than to include the prescribed narcotic treatment for this condition. _ (1) Closed fracture of right calcaneus with routine healing Qualifiers: Calcaneus location: Fracture morphology: Fracture alignment: Salter- Tovar Fracture Type:
[2018-09-21] MEDS: oxyCODONE/Acetaminophen 10/325 Tablet PO PRN (17:29)
[2018-09-21] MEDS: Sod Chloride 0.9% Inj 1,000 ML IV.CONT SCH ×2 (17:31→21:55)
[2018-09-21] MEDS ORDERED: Enoxaparin Inj 40 MG/0.4 ML Syringe SQ ONE (18:00)
[2018-09-21] MEDS: Morphine Sulfate Inj 2 MG/ML Vial IV.PUSH PRN (21:58)
[2018-09-22] MEDS: oxyCODONE/Acetaminophen 10/325 Tablet PO PRN ×4 (00:04→22:46)
[2018-09-22] MEDS: Morphine Sulfate Inj 2 MG/ML Vial IV.PUSH PRN (04:53)
[2018-09-22] MEDS: Senna/Docusate Sodium 8.6/50 MG Tablet PO SCH ×3 (07:50→20:03)
--- NOTE | 2018-09-22 15:09 | P.PNIM ---
Subjective Interval history: Patient is seen lying in bed. He is just finished working with physical therapy who reports that he did well. Patient tells me that he does have somewhere safe to go and that he will eventually be going back up to his parents in [place]. Pain is better controlled today. No fever or chills. No chest pain or shortness of breath. Tolerating meals well. Physical Exam Vital signs: Last Vital Signs Temp 98 F 09/22/18 12:00 Pulse 86 09/22/18 12:00 Resp 18 09/22/18 12:00 BP 123/69 09/22/18 12:00 Pulse Ox 95 09/22/18 12:00 Intake & Output 09/20/18 09/21/18 09/22/18 09/23/18 06:59 06:59 06:59 06:59 Intake Total 360 / 360 1360 / 1360 1161 / 1161 Output Total 750 / 750 900 / 900 2075 / 2075 Balance -390 / -390 460 / 460 -914 / -914 Weight 72 kg 72 kg 82.4 kg Narrative: GENERAL: Well-nourished, well-developed adult male in no obvious distress. SKIN: Warm and dry. HEAD: Atraumatic. Normocephalic. CARDIOVASCULAR: Regular rate and rhythm. RESPIRATORY: No accessory muscle use. Clear to auscultation. Breath sounds equal bilaterally. GASTROINTESTINAL: Abdomen soft, non-tender, non-distended. Positive bowel sounds. MUSCULOSKELETAL: Extremities without clubbing, cyanosis, or edema. Right foot in Fercho wrap; toes warm and well perfused. NEUROLOGICAL: Awake and alert. No obvious cranial nerve deficits. Motor grossly within normal limits. Normal speech. PSYCHIATRIC: Appropriate mood and affect; insight and judgment good. Results Labs CBC & Chem 7: 09/20/18 06:23 09/20/18 06:23 Assessment and Plan (1) Closed fracture of right calcaneus with routine healing: Code(s): S92.001D - Unspecified fracture of right calcaneus, subsequent encounter for fracture with routine healing Status: Acute Plan Patient is a 57-year-old male who presented to the emergency room with a complaint of right foot pain times 5 days. He injured it after falling off of a two-story roof. He denies any other significant history however he is noted to have high blood pressure at admit Right foot fracture -s/p right calcaneal ORIF -Management per podiatry -PT ordered -Pain pain better controlled today. Continue as ordered. Hypertension -Likely exacerbated by pain; consider adding lisinopril or Norvasc if indicated once pain is controlled Tobacco abuse -Cessation counseled DVT prophylaxis: Anticoagulation postop per surgery Discharge planning: Patient is medically cleared for discharge; pending podiatry approval for discharge. _ (1) Closed fracture of right calcaneus with routine healing Qualifiers: Calcaneus location: Fracture morphology: Fracture alignment: Salter- Tovar Fracture Type:
--- NOTE | 2018-09-22 15:14 | P.DS ---
DS: Providers Date of admission: 09/19/18 20:03 Primary care physician: No Primary Care Physician Consults: 09/19/18 19:58 Consult to Podiatry Routine Consulting Provider: Monse Mcgee Preferred Relief Master:: Monse Mcgee Patient known to:: Monse Mcgee Reason for Consultation: Ankle Fx, Dr. Mcgee aware, no need to re-call Notified:: Service Spoke with:: MAGGIE Date Notified:: 09/19/18 Time Notified:: 21:43 Ordering Provider: STEFFEN Brief History from admission: This is a 57-year-old male with no reported PMH presented to the ER with complaints of right foot pain x5 days. States he was working in [place] and fell off a 2-story roof he was working on, was seen in the ER in [place] , told he had multiple foot fractures, was placed in splint and d/c'd home. Presents here w/ ongoing pain. Pain is severe, 9/10, non-radiating, worse w/ movement. Denies other injuries. On arrival, BP 159/96, HR 94, O2 sat 98% on RA, Afebrile. CXR with no acute findings. Foot X-ray question fracture of calcaneus with avulsion. Tib-fib X-ray negative. Foot CT chronic fracture of calcaneus and fracture of medial cuneiform. L-spine X-ray mild anterior wedging L1 appears chronic. Dr. Mcgee consulted, plan is for surgical intervention tomorrow. DS: Diagnosis Discharge Diagnosis (1) Closed fracture of right calcaneus with routine healing: Status: Acute DS: Summary Patient is a 57-year-old male who presented to the emergency room with a complaint of right foot pain times 5 days. He injured it after falling off of a two-story roof. He denies any other significant history however he is noted to have high blood pressure at admit. Imaging determined that he had a Right foot fracture and podiatry was consulted. Surgical repair - right calcaneal ORIF was completed 09/20/18. Patient was evaluated postsurgically by physical therapy who determined that he was able to ambulate via crutches. He is nonweightbearing as per podiatry at discharge and is instructed to follow-up with them in 1-2 weeks. Patient did struggle with pain control while hospitalized and will be discharged on a short course of narcotics due to acute pain. High blood pressure noted at admit was directly related to pain and additional medication is not indicated. Time Spent with Patient Total time spent providing and/or coordinating discharge services: <30 min Exam Narrative Exam Narrative: Narrative: GENERAL: Well-nourished, well-developed adult male in no obvious distress. SKIN: Warm and dry. HEAD: Atraumatic. Normocephalic. CARDIOVASCULAR: Regular rate and rhythm. RESPIRATORY: No accessory muscle use. Clear to auscultation. Breath sounds equal bilaterally. GASTROINTESTINAL: Abdomen soft, non-tender, non-distended. Positive bowel sounds. MUSCULOSKELETAL: Extremities without clubbing, cyanosis, or edema. Right foot in Fercho wrap & splint; toes warm and well perfused. NEUROLOGICAL: Awake and alert. No obvious cranial nerve deficits. Motor grossly within normal limits. Normal speech. PSYCHIATRIC: Appropriate mood and affect; insight and judgment good. Results Impressions ITS Impressions Tibia/Fibula X-Ray 09/19/18 15:03 CONCLUSION: Unremarkable study. Lumbar Spine X-Ray 09/19/18 16:23 CONCLUSION: Mild anterior wedging of L1 appears to be chronic. Foot CT 09/19/18 17:59 CONCLUSION: 1. Chronic fracture of the calcaneus and fracture of the medial cuneiform. Chest X-Ray 09/19/18 19:37 CONCLUSION: No acute cardiopulmonary disease. Foot X-Ray 09/20/18 00:00 CONCLUSION: Gross anatomical alignment. Discharge Plan Discharge Disposition Patient Disposition: Discharge Home Discharge Condition Condition: Stable Discharge Order Discharge Orders: Discharge Order (Routine); Ordered 09/22/18 Ordered By: Mira Rodgers ED Use Only Admit Order (Routine); Ordered 09/19/18 Ordered By: Janae Giordano Discharge Details Anticipated Discharge Date: 09/22/18 Discharge Comment: Will need podiatry clearance prior to final discharge. Diagnosis: Foot fracture, right Physicians Team ED Provider: Giulia Godinez ED Midlevel Provider: Janae Giordano Primary Care Provider: Primary Care Janina Puentes Attending Provider: Meg Mason Other Providers: Monse Mcgee Rxs /Orders / Referrals /Forms Prescriptions: New oxycodone-acetaminophen 5-325 mg Tablet 1 tab PO Q8HR PRN (Reason: Pain Scale 3 To 5) Qty: 9 RF: 0 No Action No Known Home Medications RF: 0 Referrals: [facility] [Outside] - See Instructions Matthew Wilkes DPM [Physician] - See Instructions Discharge Instructions Patient Printed Instructions: Foot Fracture in Adults (GEN) Discharge Interventions Interventions: Discharge Planning - Case Management Last Done: 09/20/18 13:22 Status ED Status: Left Department
--- NOTE | 2018-09-22 16:10 | P.PNPOD ---
Subjective Interval history: pain remains high, he is requesting hold DC until tomorrow Physical Exam Vital signs: Vital Signs 09/21/18 16:55 09/21/18 17:59 09/21/18 20:00 Temperature 97.9 F 98.4 F Pulse Rate 74 75 Respiratory Rate 18 Blood Pressure 148/79 H 110/68 Pulse Oximetry 95 95 09/21/18 22:03 09/22/18 00:00 09/22/18 04:00 Temperature 98.2 F 97.6 F Pulse Rate 71 72 Respiratory Rate 18 Blood Pressure 120/69 123/67 Pulse Oximetry 95 95 09/22/18 04:58 09/22/18 08:00 09/22/18 12:00 Temperature 97.5 F L 98 F Pulse Rate 78 86 Respiratory Rate 18 Blood Pressure 128/65 123/69 Pulse Oximetry 94 L 95 Intake & Output 09/21/18 09/22/18 09/22/18 18:59 06:59 18:59 Intake Total 720 / 720 441 / 441 Output Total 1075 / 1075 1000 / 1000 Balance -355 / -355 -559 / -559 Weight 82.4 kg Intake: Oral 720 / 720 441 / 441 Output: Urine 1075 / 1075 900 / 900 Estimated Blood Loss 100 / 100 Other: Date of Last Bowel Movement 09/19/18 09/19/18 09/19/18 # Bowel Movements 0 - Constitutional no acute distress - Neurological Alert and oriented x3 - Routine Extremities Exam Comments: RT LE splint clean dry and intact CFT and sensation intact to digits Medications and Allergies Active Medications: Active Medications Al Hydroxide/Mg Hydroxide (Milk Of Magnesia Liq) 30 ml PO Q12H PRN PRN Reason: Mild Constipation Bisacodyl (Dulcolax Supp) 10 mg RECTAL DAILY PRN PRN Reason: SEVERE CONSITIPATION Sodium Chloride (Ns Inj) 1,000 mls @ 100 mls/hr IV.CONT .Q10H DESEAN Last Admin: 09/21/18 21:55 Dose: Not Given Sodium Chloride (Ns Inj) 500 mls @ 30 mls/hr IV.SIG .Q10H DESEAN Lactulose (Lactulose Liq) 30 ml PO DAILY PRN PRN Reason: SEVERE CONSITIPATION Melatonin (Melatonin) 5 mg PO HS PRN PRN Reason: INSOMNIA Last Admin: 09/21/18 22:00 Dose: 5 mg Morphine Sulfate (Morphine Inj) 2 mg IV.PUSH Q4H PRN PRN Reason: PAIN 6-10 Last Admin: 09/22/18 04:53 Dose: 2 mg Naloxone HCl (Narcan Inj) 0.4 mg IV.PUSH UNSCH PRN PRN Reason: SEE LABEL COMMENTS Ondansetron HCl (Zofran Inj) 4 mg IV.PUSH Q6H PRN PRN Reason: NAUSEA OR VOMITING Oxycodone/Acetaminophen (Percocet 10/325 Mg) 1 tab PO Q6H PRN PRN Reason: PAIN SCALE 6 TO 10 Last Admin: 09/22/18 14:15 Dose: 1 tab Oxycodone/Acetaminophen (Percocet 5/325 Mg) 1 tab PO Q6H PRN PRN Reason: PAIN SCALE 3 TO 5 Senna/Docusate Sodium (Maria De Jesus-Colace) 1 tab PO BID DESEAN Last Admin: 09/22/18 14:15 Dose: 1 tab Sennosides (Senokot) 17.2 mg PO Q12H PRN PRN Reason: Moderate Constipation Sodium Chloride (Ns Flush) 2 ml IV.FLUSH BID DESEAN Last Admin: 09/22/18 14:16 Dose: 2 ml Sodium Chloride (Ns Flush) 2 ml IV.FLUSH PRN PRN PRN Reason: FLUSH AFTER USING IV ACCESS Allergies Allergy/AdvReac Type Severity Reaction Status Date / Time No Known Allergies Allergy Verified 09/19/18 14:28 Home Medications Medication Instructions Recorded Confirmed Type No Known Home Medications 09/19/18 09/19/18 History Results - Labs CBC & Chem 7: 09/20/18 06:23 09/20/18 06:23 Assessment and Plan - Assessment (1) Closed fracture of right calcaneus with routine healing Code(s): S92.001D - Unspecified fracture of right calcaneus, subsequent encounter for fracture with routine healing Status: Acute - Plan Reviewed case with Case management daughter is coming tonight to take care of him FU [address] Mcgee. Reviewed no smoking. Of with DC from my standpoint- to family care and outpt FU in clinic.
[2018-09-22] MEDS: Sod Chloride 0.9% Inj 1,000 ML IV.CONT SCH ×2 (18:58→19:33)
[2018-09-22 20:14] VITALS: BP 119/76; PULSE 74; RESP 18; TEMP 98; O2SAT 95
== END 2018-09-22 23:16 | disposition home or self-care (01) ==
LOC: NEPC 14:24 → NEDA 20:03 → N06 22:15
PROVIDERS: ADMIT Hospitalist; ATTEND Hospitalist
PROC: ORIFCAL (2018-09-20 17:49)
DX: S92.244A Nondisplaced fracture of medial cuneiform of right foot, initial encounter for closed fracture; F17.210 Nicotine dependence, cigarettes, uncomplicated; R03.0 Elevated blood-pressure reading, without diagnosis of hypertension; F12.90 Cannabis use, unspecified, uncomplicated; W13.2XXA Fall from, out of or through roof, initial encounter; I10 Essential (primary) hypertension; Y93.H3 Activity, building and construction; Y92.9 Unspecified place or not applicable; Z59.0 Homelessness; S92.001A Unspecified fracture of right calcaneus, initial encounter for closed fracture